=== PATIENT | female | born 1980 | race Caucasian/White ===

== ENCOUNTER 2023-01-26 13:12 | Outpatient (CLI) | payer BC, SELFPAY | END 2023-01-26 13:13 | disposition home or self-care (01) | LOC: NFLDREF 14:05 | PROVIDERS: Visit Provider Registered Nurse | DX: J02.9 Acute pharyngitis, unspecified (principal) | CPT/HCPCS: 87651 ==

== ENCOUNTER 2023-06-01 16:27 | Emergency (ER) | payer BC, SELFPAY ==
[2023-06-01 16:37] VITALS: BP 129/85; RESP 16; TEMP 36.1; O2SAT 98
--- NOTE | 2023-06-01 17:11 | ED.GENADULT ---
HPI - General Adult General Time Seen by Provider: 17:11 Date Seen: 06/01/23 Chief complaint: Lower Extremity Swelling Stated complaint: L leg wound Time Seen by Provider: 06/01/23 17:10 History of Present Illness HPI narrative: Pleasant 42-year-old generally healthy female presenting to the ER today with concern for an infection on her left flores. She had a skin biopsyfrom her left flores performed at the [facility] on Friday, 5 days ago. Biopsy was performed because of a suspicious lesion. Pathology results are not back yet. She has had slowly spreading redness and developing induration of the skin around the biopsy site for the past couple of days. She is not febrile. No red streaks moving proximally toward her knee. She has noted a little bit of drainage from the wound. She has developed redness and swelling around the biopsy site. She is concerned it is infected. She is not diabetic or immunosuppressed. Related Data Previous Rx's Medication Instructions Recorded cephalexin 500 mg capsule 500 mg PO Q8H #15 caps 06/01/23 cephalexin 500 mg capsule 500 mg PO Q8H 7 days #21 caps 06/01/23 Allergies Allergy/AdvReac Type Severity Reaction Status Date / Time No Known Drug Allergies Allergy Verified 06/01/23 16:39 Exam Narrative: Exam Narrative: Constitutional: Appears well-developed and well-nourished. Alert. Conversant. Non toxic. HENT: Head: Atraumatic. Nose: Nose normal. Mouth/Throat: Oral mucosa is clear and moist. no trismus. Pharynx normal. Tonsils symmetric. No tonsillar enlargement, erythema, or exudate. Eyes: Conjunctivae normal. EOM normal. Pupils equal, round, and reactive to light. No scleral icterus. Neck: Normal range of motion. Neck supple. No tracheal deviation present. Cardiovascular: Normal rate, regular rhythm. No gallop. No friction rub. No murmur heard. Pulmonary/Chest: Effort normal. No stridor. No respiratory distress. No wheezes. No rales. No rhonchi . Musculoskeletal: RUE: Normal range of motion. No tenderness. No deformity LUE: Normal range of motion. No tenderness. No deformity RLE: Normal range of motion. No edema. No tenderness. No deformity LLE: Normal range of motion in her hip, knee, ankle.. No edema. No tenderness. No deformity Lymph: No ascending lymphangitis Neurological: Alert and oriented to person, place, and time. Normal strength. CN II-VII intact. No sensory deficit. GCS eye subscore is 4. GCS verbal subscore is 5. GCS motor subscore is 6. Normal coordination Skin: The patient has a dressing in place over the biopsy site on her left anterior flores. Removed for exam. There is a roughly 5 cm circular biopsy site. There is a small amount of purulent drainage in the bottom of it. No surrounding fluctuance or other signs of abscess. There is surrounding erythema extending roughly 2-3 cm proximal and distal and 1-2 cm medial and lateral from the biopsy site. Rough size of the erythema is 3 x 5 cm. No palpable fluctuance. No crepitus or gas in the soft tissue. Suspicious for cellulitis. Otherwise, Skin is warm and dry. No rash noted. No pallor. Normal capillary refill. Psychiatric: Normal mood. Normal affect. Const: Vital Signs, click to edit/add: Vital Signs - 24 hr 06/01/23 16:37 Temperature 97.0 F L Respiratory Rate 16 Blood Pressure [Ri ght Upper Arm] 129/85 Pulse Oximetry 98 Oxygen Delivery Me thod Room Air Course Vital Signs Vital signs: Initial Vital Signs Temperature 97.0 F L 06/01/23 16:37 Temperature Source Temporal Artery Scan 06/01/23 16:37 Respiratory Rate 16 06/01/23 16:37 Blood Pressure 129/85 06/01/23 16:37 Blood Pressure Mean 99 06/01/23 16:37 Blood Pressure Position Sitting 06/01/23 16:37 Pulse Oximetry 98 06/01/23 16:37 Oxygen Delivery Method Room Air 06/01/23 16:37 Vital Signs Temperature 97.0 F L 06/01/23 16:37 Respiratory Rate 16 06/01/23 16:37 Blood Pressure 129/85 06/01/23 16:37 Pulse Oximetry 98 06/01/23 16:37 Oxygen Delivery Method Room Air 06/01/23 16:37 Temperature 97.0 F L 06/01/23 16:37 Respiratory Rate 16 06/01/23 16:37 Blood Pressure 129/85 06/01/23 16:37 Pulse Oximetry 98 06/01/23 16:37 Oxygen Delivery Method Room Air 06/01/23 16:37 Medical Decision Making [facility] Narrative Medical decision making narrative: This patient presents for evaluation of skin redness that is been slowly spreading from the biopsy site on her left anterior flores.. The history, physical exam is consistent with cellulitis. There do not appear at this time to be any complication of cellulitis including abscess, necrotizing fascitis, lymphangitis, lymphadenitis, osteomyelitis, sepsis, or shock. The patient is not immunosuppressed or diabetic. Supportive outpatient management is indicated with antibiotics. The patient is instructed to follow-up with primary care physician to ensure no progression and rapid resolution and given precautions to return if high fever, significant spread outside of the current area, worsening pain, vomiting or any other worsening. Questions answered and return precautions reviewed. Discharge Plan Discharge Clinical Impression: Cellulitis of anterior lower leg Patient Disposition: Home, Self-Care Condition: Stable Instructions: Cellulitis (ED) Additional Instructions: As we discussed, please come back to the ER right away if you notice significant spreading redness, or he develops fever, body aches, chills, or other concerning symptoms. If your infection is not dramatically improved within 48-72 hours, return to the ER or see your doctor. Prescriptions: New cephalexin 500 mg capsule 500 mg PO Q8H Qty: 15 0RF cephalexin 500 mg capsule 500 mg PO Q8H 7 Days Qty: 21 0RF Follow Up/Referrals: Provider,Not a Local [Primary Care Provider] - Stand Alone Forms: [place] Info Instructions
[2023-06-01] MEDS: cephALEXin 500 MG CAPSULE PO (17:35)
== END 2023-06-01 17:44 | disposition home or self-care (01) ==
LOC: ED 17:42
PROVIDERS: Emergency Provider Emergency Medicine
DX: L03.116 Cellulitis of left lower limb (principal)
CPT/HCPCS: 99283; A9270

== ENCOUNTER 2023-07-09 14:29 | Outpatient (CLI) | payer BC, SELFPAY | END 2023-07-09 14:30 | disposition home or self-care (01) | LOC: WOUND 14:29 | PROVIDERS: Visit Provider Surgery | DX: T81.31XA Disruption of external operation (surgical) wound, not elsewhere classified, initial encounter (principal) | CPT/HCPCS: 97597; 99213 ==

== ENCOUNTER 2023-07-23 14:07 | Outpatient (CLI) | payer BC, SELFPAY | END 2023-07-23 14:08 | disposition home or self-care (01) | LOC: WOUND 14:08 | PROVIDERS: Visit Provider Surgery | DX: T81.31XA Disruption of external operation (surgical) wound, not elsewhere classified, initial encounter (principal) | CPT/HCPCS: 99212 ==